=== PATIENT | male | born 1970 | race Caucasian/White ===

== ENCOUNTER 2017-06-04 07:56 | Inpatient (IN) | payer BC ==
[~2017-06-04] VITALS: Ht 182.9 cm; Wt 134.5 kg
[~2017-06-04 07:56] MED LIST: DAILY MULTIPLE1 EACH PO; LISINOPRIL5 MG PO; PROTONIX40 MG PO
[2017-06-04 09:05] VITALS: BP 128/78
[2017-06-04 14:30] VITALS: BP 166/96
[2017-06-04 17:59] LABS: POINT-OF-CARE METER ID UU14162508
[2017-06-04 18:33] VITALS: BP 150/89
[2017-06-04 19:21] VITALS: BP 144/93
[2017-06-04 23:46] VITALS: BP 161/98
[2017-06-04 23:53] LABS: POINT-OF-CARE METER ID UU14162508
[2017-06-05 01:13] VITALS: BP 134/70
[2017-06-05 03:26] VITALS: BP 134/82
[2017-06-05 07:45] VITALS: BP 156/90
[2017-06-05 07:58] LABS: HEMATOCRIT 45.8 % (38.0-50.0); MCH 31.5 PG (29.0-34.0); MCHC 34.1 G/DL (30.0-36.0); MCV 92.5 FL (86-99); MEAN PLAT.VOLUME 11.6 uM^3 (9.0-12.4); PLATELET COUNT 189 K/uL (156-360); RBC DIS.WIDTH-CV 13.1 % (11.8-14.6); RBC DIS.WIDTH-SD 44.5 % (39-53); RED BLOOD COUNT 4.95 M/uL (4.00-5.50); WHITE BLOOD COUNT 17.4 K/uL (4.1-10.2)
[2017-06-05 08:21] LABS: ANION GAP 12 MEQ/L (2-14); CHLORIDE 104 MEQ/L (99-109); GFR ESTIMATE (CALCULATED) > 59 mL/min/; GLUCOSE 120 mg/dL (70-99); MAGNESIUM 2.2 mg/dl (1.3-2.7); POTASSIUM 4.4 MEQ/L (3.7-5.4); SAMPLE HEMOLYSIS CHECK 0; SAMPLE ICTERIC CHECK 0; SAMPLE LIPEMIA CHECK 0; SODIUM 141 MEQ/L (136-147); UREA NITROGEN (BUN) 12 mg/dL (9-23)
[2017-06-05] MEDS ORDERED: HYDROCODON-ACE1 EAC7 PO (08:49)
== END 2017-06-05 12:44 | disposition home or self-care (01) | DRG 621 ==
LOC: 2SOUTH 07:56 → SDC 12:34 → EDSTATUS 12:34 → 2SOUTH 12:35 → 2EAST 14:21 → 2SOUTH 15:44 → 2EAST 06-05 12:44
PROVIDERS: Surgery
PROC: 0DB64Z3 Excision of Stomach, Percutaneous Endoscopic Approach, Vertical (ICD-10-PCS; principal; 2017-06-04)
DX: E66.01 Morbid (severe) obesity due to excess calories (principal); I10 Essential (primary) hypertension; K21.9 Gastro-esophageal reflux disease without esophagitis; Z68.41 Body mass index [BMI] 40.0-44.9, adult
CPT/HCPCS: 80048; 82948; 83735; 84100; 85027; 94799; J0330; J0690; J1100; J1170; J1644; J1650; J1815; J1885; J2001; J2405; J2765; J2795; J3010; J3475; J3480; Q0175; S0020